=== PATIENT | male | born 2000 | race Caucasian/White ===

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

== ENCOUNTER 2021-02-11 12:50 | Outpatient (CLI) | payer BC, MEDICAID, SELFPAY ==
--- NOTE | ~2021-02-11 | XR_ITS ---
EXAMINATION: XR abdomen/kub 1V INDICATION: Cystic fibrosis, vomiting TECHNIQUE: Supine views of the abdomen were obtained on three radiographs. COMPARISON: 12/31/2016 FINDINGS: A moderate volume of colonic stool is present. The bowel gas pattern is normal. The visuali zed lung bases are clear. There is minimal lumbar levoscoliosis. IMPRESSION: 1. No radiographic correlate for the patient's symptoms. Reviewed, dictated and finalized at location B.
== END 2021-02-11 12:51 | disposition home or self-care (01) ==
PROVIDERS: PCP Pediatrics; Visit Provider Pediatrics
DX: E84.9 Cystic fibrosis, unspecified (principal); R11.10 Vomiting, unspecified; R10.9 Unspecified abdominal pain
CPT/HCPCS: 74018

== ENCOUNTER 2021-11-17 12:41 | Outpatient (CLI) | payer BC, MEDICAID, SELFPAY ==
[2021-11-17 13:30] LABS: Bilirubin,Total 0.5 mg/dL (0.00-1.00); Total Protein 7.3 g/dL (6.4-8.2)
[2021-11-17 13:48] LABS: Alanine Aminotransferase 161 U/L (16-63); Albumin Level 3.6 g/dL (3.4-5.0); Alkaline Phosphatase 97 U/L (46-116)
[2021-11-17 14:20] LABS: Aspartate Amino Transferase 129 U/L (15-37); Bilirubin Direct < 0.1 mg/dL (0-0.2)
== END 2021-11-17 12:42 | disposition home or self-care (01) ==
LOC: CHSLAB 12:46
PROVIDERS: PCP Pediatrics
DX: R74.01 Elevation of levels of liver transaminase levels (principal)
CPT/HCPCS: 36415; 80076

== ENCOUNTER 2024-03-20 20:07 | Emergency (ER) | payer BC, SELFPAY ==
--- NOTE | ~2024-03-20 | XR_ITS ---
EXAM: XR hand RT min 3V DATE: 03/20/2024 21:10 HISTORY: DOG BITE . COMPARISON: None available. FINDINGS: Lateral view limited by overlapping fingers. Normal mineralization. No fracture or dislocat ion. No lytic or blastic lesion. Joint spaces are maintained. No erosion or periosteal change. Soft t issue swelling over the dorsal hand. IMPRESSION: Osseous finding the left hand. Reviewed, dictated and finalized at location K.
[2024-03-20 20:14] VITALS: BP 155/97; PULSE 104; RESP 18; TEMP 37.1; O2SAT 100
[2024-03-20] MEDS: IBUPROFEN 600 MG TABLET PO (20:55)
[2024-03-20] MEDS: oxyCODONE HCL (*CRX) 5 MG TAB IR PO (20:56)
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
[2024-03-20] MEDS: TETANUS,DIPHTHERIA,AC PERTUSSIS ADULT 0.5 ML (ADACEL) IM (21:04)
[2024-03-20] MEDS: AMOXICILLIN/CLAVULANATE K 875-125 MG TAB 1 TABLET PO (21:23)
[2024-03-20 21:31] VITALS: BP 134/85; PULSE 85; RESP 18; TEMP 36.6; O2SAT 99
== END 2024-03-20 21:31 | disposition home or self-care (01) ==
PROVIDERS: Emergency Provider Emergency Medicine
DX: S61.451A Open bite of right hand, initial encounter (principal); W54.0XXA Bitten by dog, initial encounter; Z23 Encounter for immunization
CPT/HCPCS: 73130; 90471; 90715; 99283; A9270

== ENCOUNTER 2024-03-21 21:30 | Emergency (ER) | payer BC, SELFPAY ==
[2024-03-21 21:31] VITALS: BP 152/83; PULSE 109; RESP 18; TEMP 36.4; O2SAT 100
== END 2024-03-21 23:59 | disposition left against medical advice (07) ==
LOC: ANHED 03-22 00:02
DX: S61.451A Open bite of right hand, initial encounter (principal); W54.0XXA Bitten by dog, initial encounter
CPT/HCPCS: 99199